=== PATIENT | female | born 1985 | race Caucasian/White ===

== ENCOUNTER 2018-08-31 11:11 | Emergency (ER) | payer SELFPAY ==
[~2018-08-31] VITALS: Ht 170.2 cm; Wt 85.3 kg
--- OUTSIDE RECORDS SUMMARY | ~2018-08-31 | XMS | Clinical Summary ---
Demographics + + + | Address | [address] | | | [place] [address] | + + + | Home Phone | | + + + | Preferred Language | Unknown | + + + | Marital Status | | + + + | Zoroastrianism Affiliation | Unknown | + + + | Race | Unknown | + + + | Ethnic Group | Unknown | + + + Author + + + | Author | [facility] | | | and [place] | + + + | Organization | [facility] | | | and [place] | + + + | Address | Unknown | + + + | Phone | Unavailable | + + + Support + + + + + | Name | Relationship | Address | Phone | + + + + + | Asia Sparks | [place] | [address] | | | | | [place] [address] | | + + + + + Care Team Providers + +------+ + | Care Test Man Name | Role | Phone | + +------+ + | Mumtaz Joe MD | PP | Unavailable | + +------+ + Allergies No Known Allergies Medications + + + +---------+------+------+-------+ | Medication | Sig | Dispensed | Refills | Star | End | Statu | | | | | | t | Date | s | | | | | | Date | | | + + + +---------+------+------+-------+ | levothyroxine | Take 88 mcg by mouth | | 0 | | | Activ | | (SYNTHROID, | Daily. | | | | | e | | LEVOTHROID) 88 mcg | | | | | | | | tablet | | | | | | | + + + +---------+------+------+-------+ | omeprazole | Take 20 mg by mouth | | 0 | | | Activ | | (PRILOSEC) 20 mg | every morning | | | | | e | | capsule | (before breakfast). | | | | | | + + + +---------+------+------+-------+ | Vit-Fe | Take by mouth. | | 0 | | | Activ | | Fumarate-FA | | | | | | e | | ( FORMULA) | | | | | | | | 27-1 MG TABS | | | | | | | + + + +---------+------+------+-------+ | amoxicillin | Take 500 mg by mouth | | 0 | | | Activ | | (AMOXIL) 500 MG | 3 times daily. | | | | | e | | capsule | | | | | | | + + + +---------+------+------+-------+ | | Take 1 tablet by | | 0 | | | Activ | | HYDROcodone-acetamin | mouth once. | | | | | e | | ophen (NORCO) 5-325 | | | | | | | | mg per tablet (ER | | | | | | | | Prepack) | | | | | | | + + + +---------+------+------+-------+ | docusate-senna | Take 1 tablet by | | 0 | | | Activ | | (SENOKOT-S) 50-8.6 | mouth Twice daily | | | | | e | | mg per tablet | as needed. | | | | | | + + + +---------+------+------+-------+ | polyethylene | Take 17 g by mouth | | 0 | | | Activ | | glycol (MIRALAX) | Daily. | | | | | e | | powder | | | | | | | + + + +---------+------+------+-------+ Active Problems No known active problems Family History + + +------+ + | Medical History | Relation | Name | Comments | + + +------+ + | Depression | Mother | | | + + +------+ + | Diabetes | Mother | | | + + +------+ + | Migraines | Mother | | | + + +------+ + | Psoriasis | Mother | | | + + +------+ + + +------+--------+ + | Relation | Name | Status | Comments | + +------+--------+ + | Mother | | | | + +------+--------+ + Social History + +-------+ +--------+------+ | Tobacco Use | Types | Packs/Day | Years | Date | | | | | Used | | + +-------+ +--------+------+ | Never Smoker | | | | | + +-------+ +--------+------+ + + +---------+ + | Alcohol Use | Drinks/We | oz/Week | Comments | | | ek | | | + + +---------+ + | Yes | | | RAARE | + + +---------+ + + + + | Sex Assigned at | Date Recorded | | | | + + + | Not on file | | + + + + + + + | Job Start Date | Occupation | Industry | + + + + | Not on file | Not on file | Not on file | + + + + + + + + | Travel History | Travel Start | Travel End | + + + + + + | No recent travel history available. | + + Last Filed Vital Signs + + + + | Vital Sign | Reading | Time Taken | + + + + | Blood Pressure | 110/65 | 09/01/20151821 PDT | + + + + | Pulse | 94 | 09/01/20151821 PDT | + + + + | Temperature | 37.2 C (99 F) | 09/01/20151821 PDT | + + + + | Respiratory Rate | 12 | 09/01/20151821 PDT | + + + + | Oxygen Saturation | 96% | 09/01/20151821 PDT | + + + + | Inhaled Oxygen | - | - | | Concentration | | | + + + + | Weight | 80.7 kg (178 lb) | 09/01/20151821 PDT | + + + + | Height | 172.7 cm (5' 8") | 09/01/20151821 PDT | + + + + | Body Mass Index | 27.06 | 09/01/2015 1822 PDT | + + + + Plan of Treatment + + + + + | Health Maintenance | Due Date | Last Done | Comments | + + + + + | Vaccine: | | | | | Dtap/Tdap/Td (1 - | 7 | | | | Tdap) | | | | + + + + + | Cervical Cancer | | | | | Screening (Pap) | 8 | | | + + + + + | Vaccine: Influenza | | | | | (Season Ended) | 9 | | | + + + + + Results Not on filefrom Last 3 Months Advance Directives Patient has advance care planning documents on file. For more information, please contact:[facility] [place] [place] [address]
--- OUTSIDE RECORDS SUMMARY | ~2018-08-31 | XMS | Clinical Summary ---
Demographics + + + | Address | [address] | | | [place] [address] | + + + | Home Phone | | + + + | Preferred Language | Unknown | + + + | Marital Status | | + + + | Mosque Affiliation | Unknown | + + + | Race | Unknown | + + + | Ethnic Group | Unknown | + + + Author + + + | Author | [facility] | | | and [place] | + + + | Organization | [facility] | | | and [...] | | | | | [place] [address] | | + + + + + Care Team Providers + +------+ + | Care Employment Manager Name | Role | Phone | + [...] documents on file. For more information, please contact:[facility] [place] [address]
[~2018-08-31 11:11] MED LIST: IBUPROFEN600 MG PO; KEFLEX500 MG PO; LEVOTHYROXINE88 MCG PO; MIRALAX17 GM PO; RANITIDINE HCL150 M1 PO; TYLENOL WITH C1 EACH PO; TYLENOL325 MG PO; ZOFRAN ODT4 MG PO
[2018-08-31] MEDS ORDERED: ONDANSETRON ODT8 MG PO (14:07)
== END 2018-08-31 14:15 | disposition home or self-care (01) ==
LOC: ED 11:11
DX: S06.0X0A Concussion without loss of consciousness, initial encounter (principal); Z90.89 Acquired absence of other organs; Z79.899 Other long term (current) drug therapy; W20.8XXA Other cause of strike by thrown, projected or falling object, initial encounter
CPT/HCPCS: 70450; 99283-25